=== PATIENT | male | born 1955 | race Caucasian/White ===

== ENCOUNTER 2017-11-19 14:03 | Emergency (ER) | payer BC ==
--- NOTE | 2017-11-19 14:21 | Emergency Department Record ---
History of Present Illness - General Chief Complaint: Abdominal Pain Stated Complaint: PAIN LEFT SIDE Time Seen by Provider: 11/19/17 14:09 Source: Patient Mode of Arrival: Ambulatory Limitations: No limitations - History of Present Illness Initial Comments: 62 yo male presents with left side pain. The pain started over the last day. No fevers, chills, dysuria, hematuria, diarrhea. The area lateral on the lower left is tender. Mild nausea. No mass or hernia. No history of the same. Certain movements make it worse or pushing on the area. No rash. No history of the same. No history of renal stones, no diverticulosis, no history of GI bleed. MD Complaint: Abdominal pain (Left) -: Days(s) (1) Location: LLQ Radiation: LLQ Migration to: LLQ Severity: Moderate Quality: Aching, Sharp Consistency: Intermittent Improves With: Rest Worsens With: Movement Context: Other Associated Symptoms: Denies other symptoms - Related Data Previous Rx's Medication Instructions Recorded Ciprofloxacin HCl [Cipro] 500 mg PO NOW #14 tablet 11/19/17 Metronidazole [Flagyl] 500 mg PO QID #28 tablet 11/19/17 Allergies Allergy/AdvReac Type Severity Reaction Status Date / Time No Known Allergies Allergy PT UNSURE Verified 11/19/17 14:13 OF REACTION Review of Systems Constitutional: Denies: Chills, Fever, Weakness Eyes: Denies: Eye discharge ENT: Denies: Congestion, Throat pain Respiratory: Denies: Cough Cardiovascular: Denies: Chest pain, Palpitations, Syncope Endocrine: Denies: Fatigue Gastrointestinal: Reports: As per HPI, Abdominal pain, Nausea. Denies: Diarrhea , Vomiting Genitourinary: Denies: Dysuria, Frequency, Hematuria Musculoskeletal: Denies: Arthralgia, Back pain, Myalgia, Neck pain Skin: Denies: Bruising, Change in color, Rash Neurological: Denies: Numbness, Vertigo, Weakness Psychiatric: Denies: Anxiety Hematological/Lymphatic: Denies: Blood Clots, Easy bleeding, Easy bruising Physical Exam - General General Appearance: Alert, Oriented x3, Cooperative, No acute distress Limitations: No limitations - Head Head exam: Atraumatic, Normal inspection - Eye Eye exam: Normal appearance. negative: Conjunctival injection, Scleral icterus - ENT ENT exam: Normal exam Ear exam: Normal external inspection Nasal Exam: Normal inspection Mouth exam: Normal external inspection - Neck Neck exam: Normal inspection - Respiratory Respiratory exam: Normal lung sounds bilaterally. negative: Respiratory distress - Cardiovascular Cardiovascular Exam: Regular rate, Normal rhythm, Normal heart sounds - GI/Abdominal GI/Abdominal exam: Soft, Tenderness (tender left lateral abdomen over a small area approximately the size of my fist, no mass or hernia). negative: Distended , Guarding, Rebound, Rigid - Rectal Rectal exam: Deferred - exam: Deferred - Extremities Extremities exam: Normal inspection - Back Back exam: Reports: Normal inspection, CVA tenderness (L) (as noted above), Full ROM, Tenderness. Denies: Muscle spasm, Rash noted - Neurological Neurological exam: Alert, Oriented X3 - Psychiatric Psychiatric exam: Normal affect, Normal mood - Skin Skin exam: Dry, Intact, Normal color, Warm Course - Reevaluation(s) Reevaluation #1: The labs were reviewed No acute changes on the CBC or CMP The UA is negative 11/19/17 15:14 11/19/17 15:[address] is consistent with mild acute diverticulitis, no free air, no free fluid , no abscess He is afebrile, no elevated WBC count, eating and drinking. He is a good outpatient candidate. He will be referred to GI. We discussed the results of the tests and questions were answered at the time of discharge. The patient is doing well and is comfortable with DC. DC vitals were reviewed. We discussed at length reasons to immediately return to the ED as well as close follow up. The patient will call the PCP for close follow up of this ED visit to review this visit and the tests performed Medical Decision Making - Lab Data Result diagrams: 11/19/17 14:30 11/19/17 14:30 Disposition Disposition: Discharge Clinical Impression: Left flank pain, Diverticulitis Disposition: Home, Self-Care Condition: (1) Good Instructions: Diverticulitis (ED) Additional Instructions: Take the prescriptions provided today as directed. Call your family doctor. Call to schedule the next available appointment for a recheck. You have been referred to the GI Clinic. You will get a call first of the week for an appointment availability Return to ED if your symptoms worsen or if you have any new concerns. Review the final Emergency Record and test results with your doctor on follow up Start the antibiotics tonight Prescriptions: Ciprofloxacin HCl [Cipro] 500 mg PO NOW #14 tablet Metronidazole [Flagyl] 500 mg PO QID #28 tablet Forms: Patient Portal Access Time of Disposition: 16:30 Quality - Quality Measures Quality Measures: N/A - Blood Pressure Screening Does Patient Have Any of the Following: Active Dx of HTN Blood Pressure Classification: Normal BP Reading Systolic Measurement: 111 Diastolic Measurement: 74 Screening for High Blood Pressure: Patient Exclusion, Hx of HTN [G9744]
[2017-11-19 14:44] LABS: BASO % 0.3 % (0-6); EOS % 0.3 % (0-6); GRAN % 78.3 % (47-80); HEMOGLOBIN 15.5 gm/dl (14.0-18.0); LYMPH % 13.3 % (16-45); MEAN CELL VOLUME 85.7 fl (81-97); MEAN CORPUSCULAR HEMOGLOBIN 29.5 pg (27-33); MEAN CORPUSCULAR HGB CONC 34.4 g/dl (32-36); MONO % 7.8 % (0-9); PLATELET COUNT 291 K/uL (130-400); RED BLOOD COUNT 5.25 M/uL (4.40-5.70); RED CELL DISTRIBUTION WIDTH 13.1 % (11.5-14.5); URINE APPEARANCE CLEAR; URINE BILIRUBIN NEGATIVE (NEGATIVE); URINE BLOOD NEGATIVE (NEGATIVE); URINE COLOR YELLOW; URINE GLUCOSE (UA) NEGATIVE (NEGATIVE); URINE KETONE NEGATIVE (NEGATIVE); URINE LEUKOCYTE ESTERASE NEGATIVE (NEGATIVE); URINE NITRITE NEGATIVE (NEGATIVE); URINE PROTEIN NEGATIVE (NEGATIVE); URINE UROBILINOGEN 0.2 E.U./dL (0.20 - 1.00); WHITE BLOOD COUNT W/O DIFF 11.8 K/uL (4.2-12.2)
[2017-11-19 14:57] LABS: BLOOD UREA NITROGEN 18 mg/dL (8-23); CREATININE 0.8 mg/dL (0.7-1.2); EST GLOMERULAR FILTRATION RATE > 60 mL/min
[2017-11-19 14:58] LABS: TOTAL PROTEIN 7.5 g/dL (6.6-8.7)
[2017-11-19 15:00] LABS: GLUCOSE,RANDOM 99 mg/dL (74-109)
[2017-11-19 15:03] LABS: ALB/GLOB RATIO 1.5 (1.1-1.8); ALBUMIN 4.5 g/dL (4.0-5.0); ALKALINE PHOSPHATASE 99 U/L (40-129); ALT/SGPT 28 U/L (<41); AST/SGOT 28 U/L (10.0-50.0)
--- NOTE | 2017-11-22 05:28 | CT SCAN REPORT ---
DATE: 11/19/2017. EXAM: CT SCAN OF THE ABDOMEN AND PELVIS. HISTORY: THE PATIENT HAS LEFT MIDABDOMINAL PAIN. TECHNIQUE: Serial axial CT scan of the abdomen and pelvis was performed at 2.5 mm intervals from the dome of the diaphragm down to the pubic symphysis without the use of intravenous or oral contrast. COMPARISON: No comparison CTs are available. FINDINGS: The lung windows and lung bases demonstrate no CT evidence of a focal infiltrative pleural effusion. An elevated left hemidiaphragm is noted. Clinical correlation for diaphragmatic paralysis is recommended. The visualized heart size and contour is within normal limits. The liver demonstrates mild, diffuse fatty infiltration. Contour and size of the liver is within normal limits. The spleen, pancreas, and bilateral adrenal glands are unremarkable. Multiple gallstones are identified within the gallbladder without CT evidence of cholecystitis. The bilateral kidneys demonstrate no CT evidence of hydronephrosis or hydroureter. A large exophytic cyst measuring 6.5 cm in diameter is noted at the inferior pole of the right kidney. There is a smaller cyst measuring 2.0 cm at the superior pole of the right kidney. These appear to be Bosniak Type I type cysts. There is a nonobstructive, 4.0 mm calculus within the anterior mid pole of the left kidney. The contour and caliber of the noncontrasted abdominal aorta is within normal limits. There is no CT evidence of retroperitoneal, pelvic, or inguinal lymphadenopathy. The bowel gas pattern is nonobstructive. There is focal fat stranding surrounding the mid left descending colon with multiple adjacent diverticula. These findings are compatible with acute, mild diverticulitis. There is no CT evidence of free intraperitoneal air or free intraperitoneal fluid. No peridiverticular abscess is noted. Anterior abdominal wall is unremarkable. The urinary bladder is unremarkable. Moderate prostatic calcifications are identified. The bone windows demonstrate no CT evidence of an acute process involving the osseous structures of the abdomen and pelvis. IMPRESSION: FINDINGS COMPATIBLE WITH ACUTE, MILD DIVERTICULITIS. NO PERIDIVERTICULAR ABSCESS, FREE INTRAPERITONEAL AIR, OR FREE INTRAPERITONEAL FLUID IS NOTED. JOB NUMBER: [id number] MTDD
== END 2017-11-19 16:12 | disposition home or self-care (01) ==
LOC: ER 14:03
DX: K57.92 Diverticulitis of intestine, part unspecified, without perforation or abscess without bleeding (principal); R10.32 Left lower quadrant pain; I10 Essential (primary) hypertension
CPT/HCPCS: 74176; 80053; 81003; 85025; 99283; 99284

== ENCOUNTER 2018-01-22 11:00 | Emergency (ER) | payer BC ==
--- NOTE | 2018-01-22 12:12 | Emergency Department Record ---
History of Present Illness - General Chief Complaint: Headache Migraine Stated Complaint: HEADACHE Time Seen by Provider: 01/22/18 11:37 Source: Patient Mode of Arrival: Ambulatory - History of Present Illness Initial Comments: headache on the right side on and off for 3 days and no trauma and not much relief with tylenol of motrin. last night dose of tylenol 1000mg . Patient said the headache goes away when sleeping. MD Complaint: Headache (nh) Onset/Timin -: Days(s) Onset Description: Gradual Location: Frontal Severity: Moderate Severity scale (1-10): 7 Quality: Aching Consistency: Constant, Intermittent Improves With: Nothing Worsens With: None Treatments Prior to Arrival: Acetaminophen, Ibuprofen - Symptoms of Stroke Onset of Symptoms Date: 01/18/18 Onset of Symptoms Time: 12:30 - Related Data Home Medications Medication Instructions Recorded Confirmed Last Taken Aspirin [Aspirin EC] 81 mg PO DAILY 01/22/18 01/22/18 1 Day Ago ~01/21/18 Cholecalciferol (Vitamin D3) 10,000 unit PO DAILY 01/22/18 01/22/18 1 Day Ago [Vitamin D3] ~01/21/18 Dwight-3 Fatty Acids/Fish Oil [Fish 1 each PO DAILY 01/22/18 01/22/18 1 Day Ago Oil 1,000 mg Capsule] ~01/21/18 Previous Rx's Medication Instructions Recorded Naproxen [Naprosyn] 500 mg PO BID #30 tablet 01/22/18 Allergies Allergy/AdvReac Type Severity Reaction Status Date / Time No Known Allergies Allergy PT UNSURE Verified 01/22/18 11:50 OF REACTION Travel Screening - Travel/Exposure Within Last 30 Days Have you traveled within the last 30 days?: No - Travel/Exposure Within Last Year Have you traveled outside the [place] in the last year?: No - Additonal Travel Details Have you been exposed to anyone with a communicable illness?: No - Travel Symptoms Symptom Screening: None Review of Systems Reviewed: No additional complaints except as noted below Constitutional: Reports: As per HPI. Denies: Chills, Fever, Malaise, Night sweats, Weakness, Weight change Eyes: Reports: As per HPI. Denies: Eye discharge, Eye pain, Photophobia, Vision change ENT: Reports: As per HPI. Denies: Congestion, Dental pain, Ear pain, Epistaxis , Hearing loss, Throat pain Respiratory: Reports: As per HPI. Denies: Cough, Dyspnea, Hemoptysis, Stridor, Wheezes Cardiovascular: Reports: As per HPI. Denies: Arrhythmia, Chest pain, Dyspnea on exertion, Edema, Murmurs, Orthopnea, Palpitations, Paroxysmal nocturnal dyspnea, Rheumatic Fever, Syncope Endocrine: Reports: As per HPI. Denies: Fatigue, Heat or cold intolerance, Polydipsia, Polyuria Gastrointestinal: Reports: As per HPI. Denies: Abdominal pain, Constipation, Diarrhea, Hematemesis, Hematochezia, Melena, Nausea, Vomiting Genitourinary: Reports: As per HPI. Denies: Dysuria, Frequency, Hematuria, Incontinence, Retention, Testicular pain, Testicular mass, Urgency Musculoskeletal: Reports: As per HPI. Denies: Arthralgia, Back pain, Gout, Joint swelling, Myalgia, Neck pain Skin: Reports: As per HPI. Denies: Bruising, Change in color, Change in hair/ nails, Lesions, Pruritus, Rash Neurological: Reports: As per HPI. Denies: Abnormal gait, Confusion, Headache, Numbness, Paresthesias, Seizure, Tingling, Tremors, Vertigo, Weakness Psychiatric: Reports: As per HPI. Denies: Anxiety, Auditory hallucinations, Depression, Homicidal thoughts, Suicidal thoughts, Visual hallucinations Hematological/Lymphatic: Reports: As per HPI. Denies: Anemia, Blood Clots, Easy bleeding, Easy bruising, Swollen glands Past Medical History - SOCIAL HISTORY Smoking Status: Former smoker Alcohol Use: Rare Drug Use: None - RESPIRATORY Hx Respiratory Disorders: No - CARDIOVASCULAR Hx Cardio Disorders: Yes Hx Hypertension: Yes - NEURO Hx Neuro Disorders: No - GI Hx GI Disorders: No - Hx Genitourinary Disorders: No - ENDOCRINE Hx Endocrine Disorders: Yes Hx Diabetes: Yes (borderline) - MUSCULOSKELETAL Hx Musculoskeletal Disorders: No - PSYCH Hx Psych Problems: No - HEMATOLOGY/ONCOLOGY Hx Hematology/Oncology Disorders: No Family Medical History Any Significant Family History?: Yes Hx Diabetes: Mother Hx Stroke: Father Physical Exam - General General Appearance: Alert, Oriented x3, Cooperative, No acute distress - Head Head exam: Normal inspection - Eye Eye exam: Normal appearance, PERRL Pupils: Normal accommodation - ENT ENT exam: Normal exam, Mucous membranes moist, Normal external ear exam, Normal orophraynx, TM's normal bilaterally Ear exam: Normal external inspection. negative: External canal tenderness Nasal Exam: Normal inspection. negative: Discharge, Sinus tenderness Mouth exam: Normal external inspection, Tongue normal Teeth exam: Normal inspection. negative: Dental caries Throat exam: Normal inspection. negative: Tonsillar erythema, Tonsillar exudate - Neck Neck exam: Normal inspection, Full ROM. negative: Tenderness - Respiratory Respiratory exam: Normal lung sounds bilaterally. negative: Respiratory distress - Cardiovascular Cardiovascular Exam: Regular rate, Normal rhythm, Normal heart sounds - GI/Abdominal GI/Abdominal exam: Soft, Normal bowel sounds. negative: Tenderness - Rectal Rectal exam: Deferred - exam: Deferred - Extremities Extremities exam: Normal inspection, Full ROM, Normal capillary refill. negative: Tenderness - Back Back exam: Reports: Normal inspection, Full ROM. Denies: Muscle spasm, Rash noted, Tenderness - Neurological Neurological exam: Alert, Normal gait, Oriented X3, Reflexes normal - Psychiatric Psychiatric exam: Normal affect, Normal mood - Skin Skin exam: Dry, Intact, Normal color, Warm Course Vital Signs 01/22/18 11:42 Temperature 98.2 F Pulse Rate 78 Respiratory 16 Rate Blood Pressure 120/38 Pulse Ox 97 - Reevaluation(s) Reevaluation #1: offerred pain meds and he initially refused meds 01/22/18 12:12 Medical Decision Making - Data Complexity MDM Data: Labs Ordered and/or Reviewed, X-Ray Ordered and/or Reviewed (CT head negative) - Lab Data Result diagrams: 01/22/18 12:20 01/22/18 12:20 Disposition Clinical Impression: Headache Qualifiers: Headache type: unspecified Headache chronicity pattern: acute headache Intractability: not intractable Qualified Code(s): R51 - Headache Disposition: Home, Self-Care Condition: (1) Good Instructions: Tension Headache (ED) Additional Instructions: follow up with family in 2-5 days Prescriptions: Naproxen [Naprosyn] 500 mg PO BID #30 tablet Forms: Patient Portal Access Time of Disposition: 13:41 Quality - Quality Measures Quality Measures: N/A - Blood Pressure Screening Does Patient Have Any of the Following: No Blood Pressure Classification: Pre-Hypertensive BP Reading Systolic Measurement: 120 Diastolic Measurement: 38 Screening for High Blood Pressure: < Pre-Hypertensive BP, F/U Documented > [ G8950] Pre-Hypertensive Follow-up Interventions: Referral to alternative/primary care provider.
[2018-01-22 12:24] LABS: BASO % 0.7 % (0-6); EOS % 1.2 % (0-6); GRAN % 58.8 % (47-80); HEMATOCRIT 45.8 % (42.0-52.0); HEMOGLOBIN 15.5 gm/dl (14.0-18.0); LYMPH % 30.5 % (16-45); MEAN CELL VOLUME 85.8 fl (81-97); MEAN CORPUSCULAR HGB CONC 33.8 g/dl (32-36); MEAN PLATELET VOLUME 9.8 fl (7.4-10.4); MONO % 8.8 % (0-9); PLATELET COUNT 301 K/uL (130-400); RED BLOOD COUNT 5.34 M/uL (4.40-5.70); RED CELL DISTRIBUTION WIDTH 13.5 % (11.5-14.5); WHITE BLOOD COUNT W/O DIFF 5.7 K/uL (4.2-12.2)
[2018-01-22 12:41] LABS: BLOOD UREA NITROGEN 16 mg/dL (8-23); CREATININE 0.8 mg/dL (0.7-1.2); EST GLOMERULAR FILTRATION RATE > 60 mL/min
[2018-01-22 12:44] LABS: GLUCOSE,RANDOM 102 mg/dL (74-109)
--- NOTE | 2018-01-23 14:37 | CT SCAN REPORT ---
EXAM: CT OF THE HEAD WITHOUT CONTRAST HISTORY: FRONTAL HEADACHES TIMES THREE DAYS. TECHNIQUE: Noncontrast images of the brain were obtained. FINDINGS: The brain volume is normal. There is no evidence of hemorrhage, mass effect, midline shift, or acute transcortical infarction. No extraaxial fluid collections are seen. The ventricles and basal cisterns are preserved. IMPRESSION: UNREMARKABLE CT SCAN OF THE BRAIN. JOB NUMBER: [id number] MTDD
== END 2018-01-22 14:17 | disposition home or self-care (01) ==
LOC: ER 11:00
DX: R51 Headache (principal); I10 Essential (primary) hypertension; Z87.891 Personal history of nicotine dependence
CPT/HCPCS: 70450; 80048; 85025; 85730; 99283; 99284

== ENCOUNTER 2018-05-05 07:36 | Emergency (ER) | payer BC ==
[2018-05-05] MEDS ORDERED: 0.9 % SODIUM CHLORIDE 1,000 ML BAG IV ONE (07:42)
--- NOTE | 2018-05-05 07:48 | Emergency Department Record ---
History of Present Illness - General Chief Complaint: Back Pain/Injury Stated Complaint: BACK PAIN Time Seen by Provider: 05/05/18 07:41 Source: Patient Mode of Arrival: Ambulatory Limitations: No limitations - History of Present Illness Initial Comments: 63 yo male presents with left flank and left side pain for about a week. He has nausea without vomiting. No fevers. He has a history of diverticulitis. He was started on antibiotics on Tuesday by his GI doctor. He is having a few small episodes of diarrhea each day. The pain is mild but not getting better. No rash. Dr Santiago is his GI specialist. He is on Cipro and Flagyl. MD Complaint: Back pain -: Days(s) Place: Home Radiation: Abdomen Severity: Moderate Quality: Aching Consistency: Constant Improves With: Other (rest) Worsens With: Eating Context: Other (Hx of diverticulitis) Associated Symptoms: Nausea/vomiting - Related Data Home Medications Medication Instructions Recorded Confirmed Last Taken Ciprofloxacin HCl [Cipro] 500 mg PO Q12HR 05/05/18 05/05/18 05/05/18 Losartan/Hydrochlorothiazide 1 each PO DAILY 05/05/18 05/05/18 05/05/18 [Losartan-Hctz 50-12.5 mg Tab] Metronidazole [Flagyl] 500 mg PO BID 05/05/18 05/05/18 05/05/18 Allergies Allergy/AdvReac Type Severity Reaction Status Date / Time No Known Allergies Allergy PT UNSURE Verified 05/05/18 08:11 OF REACTION Review of Systems Constitutional: Denies: Chills, Fever, Malaise, Weakness Eyes: Denies: Eye discharge, Eye pain, Photophobia, Vision change ENT: Denies: Congestion, Throat pain Respiratory: Denies: Cough, Dyspnea Cardiovascular: Denies: Chest pain, Palpitations, Syncope Endocrine: Denies: Fatigue Gastrointestinal: Reports: Abdominal pain, Diarrhea, Nausea Genitourinary: Denies: Dysuria, Frequency, Hematuria Musculoskeletal: Reports: Back pain. Denies: Arthralgia, Neck pain Skin: Denies: Bruising, Change in color, Rash Neurological: Denies: Headache Psychiatric: Denies: Anxiety Hematological/Lymphatic: Denies: Easy bleeding, Easy bruising Past Medical History - SOCIAL HISTORY Smoking Status: Former smoker Drug Use: None - RESPIRATORY Hx Respiratory Disorders: No - CARDIOVASCULAR Hx Cardio Disorders: Yes Hx Hypertension: Yes - NEURO Hx Neuro Disorders: No - GI Hx GI Disorders: No - Hx Genitourinary Disorders: No - ENDOCRINE Hx Endocrine Disorders: Yes Hx Diabetes: Yes (borderline) - MUSCULOSKELETAL Hx Musculoskeletal Disorders: No - PSYCH Hx Psych Problems: No - HEMATOLOGY/ONCOLOGY Hx Hematology/Oncology Disorders: No Family Medical History Hx Diabetes: Mother Hx Stroke: Father Physical Exam - General General Appearance: Alert, Oriented x3, Cooperative, No acute distress Limitations: No limitations - Head Head exam: Atraumatic, Normal inspection - Eye Eye exam: Normal appearance. negative: Conjunctival injection, Scleral icterus - ENT ENT exam: Normal exam Ear exam: Normal external inspection Nasal Exam: Normal inspection Mouth exam: Normal external inspection - Neck Neck exam: Normal inspection - Respiratory Respiratory exam: Normal lung sounds bilaterally. negative: Respiratory distress - Cardiovascular Cardiovascular Exam: Regular rate, Normal rhythm, Normal heart sounds - GI/Abdominal GI/Abdominal exam: Soft, Tenderness (mild left lateral abdominal tender, soft no rebound or guarding). negative: Distended, Guarding, Rebound, Rigid - Rectal Rectal exam: Deferred - exam: Deferred - Extremities Extremities exam: Normal inspection, Full ROM, Normal capillary refill. negative: Tenderness - Back Back exam: Reports: Normal inspection, Full ROM. Denies: Muscle spasm, Rash noted, Tenderness - Neurological Neurological exam: Alert, Normal gait, Oriented X3 - Psychiatric Psychiatric exam: Normal affect, Normal mood - Skin Skin exam: Dry, Intact, Normal color, Warm Course - Reevaluation(s) Reevaluation #1: 05/05/18 07:[address] scan from 11/19/17 demonstrated mild acute diverticulitis 05/05/18 08:23 The CBC,CMP, and Lipase were normal No acute infection on the UA 05/05/18 09:[address] scan was reviewed. Very minimal findings to suggest diverticulitis of the descending colon, otherwise negative 05/05/18 09:35 We discussed the results of the tests and questions were answered at the time of discharge. He was informed of the incidental findings of gall stones as well The patient is doing well and is comfortable with DC. DC vitals were reviewed. We discussed at length reasons to immediately return to the ED as well as close follow up. The patient will call the PCP for close follow up of this ED visit to review this visit and the tests performed Medical Decision Making - Lab Data Result diagrams: 05/05/18 07:50 05/05/18 07:50 Disposition Disposition: Discharge Clinical Impression: Diverticulitis, Gall stones Disposition: Home, Self-Care Condition: (1) Good Instructions: Diverticulitis (ED), Gallstones (ED) Additional Instructions: Call your doctor for the next available follow up appointment to recheck your symptoms Return to the ER for a recheck if worse,any fever, any vomiting or any new concerns or questions Take the prescriptions provided as directed until gone Review this ER visit and the tests performed with your family doctor Forms: Patient Portal Access Time of Disposition: 09:36 Quality - Quality Measures Quality Measures: N/A - Blood Pressure Screening Does Patient Have Any of the Following: Active Dx of HTN Blood Pressure Classification: Pre-Hypertensive BP Reading Systolic Measurement: 133 Diastolic Measurement: 86 Screening for High Blood Pressure: Patient Exclusion, Hx of HTN [G9744]
[2018-05-05 08:00] LABS: BASO % 0.4 % (0-6); EOS % 1.5 % (0-6); GRAN % 62.7 % (47-80); HEMOGLOBIN 16.3 gm/dl (14.0-18.0); LYMPH % 27.1 % (16-45); MEAN CELL VOLUME 85.8 fl (81-97); MEAN CORPUSCULAR HEMOGLOBIN 29.7 pg (27-33); MEAN CORPUSCULAR HGB CONC 34.7 g/dl (32-36); MONO % 8.3 % (0-9); PLATELET COUNT 297 K/uL (130-400); RED BLOOD COUNT 5.48 M/uL (4.40-5.70); RED CELL DISTRIBUTION WIDTH 13.3 % (11.5-14.5); WHITE BLOOD COUNT W/O DIFF 6.7 K/uL (4.2-12.2)
[2018-05-05 08:04] LABS: URINE APPEARANCE CLEAR; URINE BILIRUBIN NEGATIVE (NEGATIVE); URINE BLOOD NEGATIVE (NEGATIVE); URINE COLOR YELLOW; URINE GLUCOSE (UA) NEGATIVE (NEGATIVE); URINE KETONE NEGATIVE (NEGATIVE); URINE LEUKOCYTE ESTERASE TRACE (NEGATIVE); URINE NITRITE NEGATIVE (NEGATIVE); URINE UROBILINOGEN 0.2 E.U./dL (0.20 - 1.00)
[2018-05-05 08:12] LABS: BLOOD UREA NITROGEN 13 mg/dL (8-23); CREATININE 0.8 mg/dL (0.7-1.2); EST GLOMERULAR FILTRATION RATE > 60 mL/min
[2018-05-05 08:13] LABS: LIPASE 26 U/L (13-60); TOTAL PROTEIN 7.2 g/dL (6.6-8.7)
[2018-05-05 08:15] LABS: GLUCOSE,RANDOM 101 mg/dL (74-109)
[2018-05-05 08:18] LABS: ALB/GLOB RATIO 1.7 (1.1-1.8); ALBUMIN 4.5 g/dL (4.0-5.0); ALKALINE PHOSPHATASE 97 U/L (40-129); ALT/SGPT 33 U/L (<41); AST/SGOT 29 U/L (10.0-50.0)
[2018-05-05 08:18] LABS: URINE EPITHELIAL CELLS 0 - 2 (FEW); URINE RBC 0 - 2 (NONE SEEN); URINE WBC 0 - 2 (0-2/hpf)
[2018-05-05 08:19] LABS: URINE AMORPHOUS SEDIMENT 1+; URINE MUCUS LIGHT
--- NOTE | 2018-05-08 09:45 | CT SCAN REPORT ---
EXAM: POST CONTRAST CT OF THE ABDOMEN AND PELVIS HISTORY: LEFT FLANK PAIN, DIARRHEA. TECHNIQUE: CT of the abdomen and pelvis was performed with 95 ml Omnipaque 300 intravenous contrast as well as oral contrast. Comparison: Noncontrast CT of the abdomen and pelvis 11/19/17. FINDINGS: Linear and ground glass opacities in the dependent lower lobes bilaterally, likely atelectasis. The liver appears unremarkable. Cholelithiasis is present. Unremarkable appearance of the adrenal glands, pancreas, and spleen. Multiple right renal cysts, the largest measuring 6.1 cm near the lower pole. Symmetric renal perfusion. No hydronephrosis. There is descending and sigmoid colon diverticulosis with minimal pericolic stranding at the level of the mid descending colon. Normal appendix. The stomach and small bowel are nondilated. Oral contrast material reaches the mid to distal small bowel loops. No free air. No free fluid. Tiny fat containing umbilical hernia. Prostatic calcifications. Unremarkable appearance of the urinary bladder. Mild calcification of the aortoiliac arterial access without evidence of aneurysm or dissection. No acute osseous findings. Degenerative changes of the thoracic and lumbar spine. IMPRESSION: 1. DESCENDING AND SIGMOID COLON DIVERTICULOSIS. MINIMAL STRANDING ADJACENT TO THE MID DESCENDING COLON, EQUIVOCAL FOR MILD UNCOMPLICATED ACUTE DIVERTICULITIS. 2. OTHERWISE NO ACUTE FINDINGS IN THE ABDOMEN OR PELVIS. 3. CHOLELITHIASIS. JOB NUMBER: [id number] [facility] [place]
== END 2018-05-05 09:46 | disposition home or self-care (01) ==
LOC: ER 07:36
DX: K57.92 Diverticulitis of intestine, part unspecified, without perforation or abscess without bleeding (principal); K80.80 Other cholelithiasis without obstruction; R11.0 Nausea; R19.7 Diarrhea, unspecified; I10 Essential (primary) hypertension; Z87.891 Personal history of nicotine dependence
CPT/HCPCS: 99284 ×2; 96360; 96361; 83690; 85025; 80053; 81001; 74177; Q9967; J7030

== ENCOUNTER 2018-08-01 11:08 | Emergency (ER) | payer BC ==
[2018-08-01] MEDS ORDERED: ASPIRIN 81 MG CHEWABLE TABLET PO ONE (11:21)
--- NOTE | 2018-08-01 11:22 | Emergency Department Record ---
History of Present Illness - General Chief Complaint: Hypertension Stated Complaint: HIGH BLOOD PRESSURE Time Seen by Provider: 08/01/18 11:14 Source: Patient Mode of Arrival: Ambulatory Limitations: No limitations - History of Present Illness Initial Comments: 63 yo male presents with feeling of flushed with chest pressure that has come and gone since yesterday. The onset was yesterday afternoon at work. It started feeling a pressure in the head. He developed a tight feeling in the chest at his desk in the late afternoon. He took aspirin twice yesterday. He went home and the symptoms resolved. Very brief light pressure occurred very early this morning then resolved with return. It is currently gone. He denies any known CAD. He had a stress test 2 years ago. He had a heart cath in the past that did not require intervention. No history of intervention. No shortness of breath. No symptoms with exertion. No sweating. No nausea. No pain with inspiration. No edema. He called his PCP and was directed to the ED. He was worried about his BP as well. During the symptoms his BP was about 160/90. He is not currently having symptoms. He called his PCP this morning and was directed to the ED. Complaint: Other -: Days(s) (1) Timing: Sudden onset Description: Other History of Same: No History of Trauma: No Severity: Mild Improves With: Nothing Worsens With: Nothing Associated Symptoms: Denies other symptoms - Shanda Coma Scale Eye Response: (4) Open spontaneously Motor Response: (6) Obeys commands Verbal Response: (5) Oriented [place] Total: 15 - Related Data Allergies Allergy/AdvReac Type Severity Reaction Status Date / Time No Known Allergies Allergy PT UNSURE Verified 08/01/18 11:17 OF REACTION Review of Systems Constitutional: Denies: Chills, Fever, Malaise, Weakness Eyes: Denies: Eye discharge ENT: Denies: Congestion, Throat pain Respiratory: Denies: Cough, Dyspnea, Hemoptysis, Stridor, Wheezes Cardiovascular: Reports: Chest pain. Denies: Dyspnea on exertion, Edema, Palpitations, Syncope Endocrine: Denies: Fatigue, Polydipsia, Polyuria Gastrointestinal: Denies: Abdominal pain, Diarrhea, Nausea, Vomiting Genitourinary: Denies: Dysuria, Frequency, Hematuria Musculoskeletal: Denies: Arthralgia, Back pain, Myalgia Skin: Denies: Bruising, Change in color, Rash Neurological: Denies: Headache Psychiatric: Denies: Anxiety Hematological/Lymphatic: Denies: Easy bleeding, Easy bruising Past Medical History - SOCIAL HISTORY Smoking Status: Former smoker Drug Use: None - RESPIRATORY Hx Respiratory Disorders: No - CARDIOVASCULAR Hx Cardio Disorders: Yes Hx Hypertension: Yes - NEURO Hx Neuro Disorders: No - GI Hx GI Disorders: No - Hx Genitourinary Disorders: No - ENDOCRINE Hx Endocrine Disorders: Yes Hx Diabetes: Yes (borderline) - MUSCULOSKELETAL Hx Musculoskeletal Disorders: No - PSYCH Hx Psych Problems: No - HEMATOLOGY/ONCOLOGY Hx Hematology/Oncology Disorders: No Family Medical History Hx Diabetes: Mother Hx Stroke: Father Physical Exam - General General Appearance: Alert, Oriented x3, Cooperative, No acute distress Limitations: No limitations - Head Head exam: Atraumatic, Normal inspection - Eye Eye exam: Normal appearance, PERRL. negative: Conjunctival injection, Scleral icterus - ENT ENT exam: Normal exam Ear exam: Normal external inspection Nasal Exam: Normal inspection Mouth exam: Normal external inspection - Neck Neck exam: Normal inspection - Respiratory Respiratory exam: Normal lung sounds bilaterally. negative: Chest wall tenderness, Decreased breath sounds, Respiratory distress, Rhonchi, Stridor, Wheezes - Cardiovascular Cardiovascular Exam: Regular rate, Normal rhythm, Normal heart sounds - GI/Abdominal GI/Abdominal exam: Soft. negative: Tenderness - Rectal Rectal exam: Deferred - exam: Deferred - Extremities Extremities exam: Normal inspection. negative: Pedal edema, Tenderness - Back Back exam: Denies: CVA tenderness (R), CVA tenderness (L) - Neurological Neurological exam: Alert, Oriented X3 - Psychiatric Psychiatric exam: Normal affect, Normal mood - Skin Skin exam: Dry, Intact, Normal color, Warm Course - Reevaluation(s) Reevaluation #1: 08/01/18 11:43 EKG #1: 11:21 Rate: 78 Rhythm: sinus [place]: normal Intervals: normal ST segments: normal Prior: none Aspirin given in the ED 08/01/18 12:08 The labs were reviewed No acute changes of the CBC,CMP, or Troponin 08/01/18 12:15 The results were discussed with the patient. I recommend admit for observation given he is moderate risk even with normal testing. His has dementia and h e states admission is not possible due to her safety. We discussed his testing is normal but I recommend follow up with cardiology next available appointment. With shared decision making he understands some risk in leaving. He accepts this risk and is reliable to return immediately if the symptoms return. Troponin is negative with being symptom free over three hours. 08/01/18 12:41 I offered to call the last truss assembler he saw (Dr Sales). The patient states he does not consider any one truss assembler or group as someone he currently follows with and prefers to be seen in [place] if possible. An appointment was made fro 2:30 August 02. The patient was informed he can be seen tomorrow and follow with Dr Beyer terminal superintendent or call [facility] to be seen in [place] or [place] as well. 08/01/18 13:13 Medical Decision Making - Lab Data Result diagrams: 08/01/18 11:20 08/01/18 11:20 Disposition Disposition: Discharge Clinical Impression: Chest pain Disposition: Home, Self-Care Condition: (1) Good Instructions: Chest Pain (ED) Additional Instructions: Call your doctor for the next available follow up appointment Review this ER visit and the tests performed with your family doctor Return to the ER for a recheck if worse, any new concerns or questions Take a full aspirin daily until the truss assembler instructs you otherwise. Referrals: Santos Beyer M.D. [MEDICAL DOCTOR] - [facility] [Provider Group] Forms: Patient Portal Access Time of Disposition: 12:43 Quality - Quality Measures Quality Measures: N/A - Blood Pressure Screening Does Patient Have Any of the Following: Active Dx of HTN Blood Pressure Classification: Hypertensive Reading Systolic Measurement: 143 Diastolic Measurement: 90 Screening for High Blood Pressure: Patient Exclusion, Hx of HTN [G9744]
[2018-08-01 11:34] LABS: ABSOLUTE NEUTROPHIL COUNT 3.36; BASO % 0.5 % (0-6); EOS % 1.1 % (0-6); GRAN % 59.9 % (47-80); HEMOGLOBIN 16.2 gm/dl (14.0-18.0); LYMPH % 29.9 % (16-45); MEAN CORPUSCULAR HEMOGLOBIN 29.3 pg (27-33); MEAN CORPUSCULAR HGB CONC 33.8 g/dl (32-36); MEAN PLATELET VOLUME 9.8 fl (7.4-10.4); MONO % 8.6 % (0-9); PLATELET COUNT 282 K/uL (130-400); RED BLOOD COUNT 5.52 M/uL (4.40-5.70); RED CELL DISTRIBUTION WIDTH 13.5 % (11.5-14.5); WHITE BLOOD COUNT W/O DIFF 5.6 K/uL (4.2-12.2)
[2018-08-01 11:46] LABS: BLOOD UREA NITROGEN 19 mg/dL (8-23); CREATININE 0.8 mg/dL (0.7-1.2); EST GLOMERULAR FILTRATION RATE > 60 mL/min
[2018-08-01 11:47] LABS: TOTAL PROTEIN 7.3 g/dL (6.6-8.7)
[2018-08-01 11:49] LABS: GLUCOSE,RANDOM 104 mg/dL (74-109)
[2018-08-01 11:51] LABS: ALB/GLOB RATIO 1.7 (1.1-1.8); ALBUMIN 4.6 g/dL (4.0-5.0); ALT/SGPT 26 U/L (<41); AST/SGOT 26 U/L (10.0-50.0)
[2018-08-01 11:52] LABS: ALKALINE PHOSPHATASE 107 U/L (40-129)
== END 2018-08-01 12:55 | disposition home or self-care (01) ==
LOC: ER 11:08
DX: R07.89 Other chest pain (principal); R73.03 Prediabetes; I25.10 Atherosclerotic heart disease of native coronary artery without angina pectoris; I10 Essential (primary) hypertension; Z87.891 Personal history of nicotine dependence
CPT/HCPCS: 80053; 84484; 85025; 93005; 93010; 99284

== ENCOUNTER 2018-11-11 14:29 | Emergency (ER) | payer BC ==
--- NOTE | 2018-11-11 15:05 | Emergency Department Record ---
History of Present Illness - General Chief complaint: Male Urogenital Problem Stated complaint: PAIN IN GENITAL AREA Time Seen by Provider: 11/11/18 14:49 Source: Patient Mode of Arrival: Ambulatory Limitations: No limitations - History of Present Illness Initial comments: 63 yo male presents with pain in his penis for several months. He thinks it started with a rash along the glands. He has been seen by a ready care and a urology PA. He has treated with steroid and antifungal creams for about 2 months with continued pain. He has pain in the pelvis to the penis. No testicle pain or swelling. No current rash. He has pain and curve with erections. No discharge or bleeding. MD Complaint: Other Onset/Timin -: Month(s) Location: Penis Radiation: None Severity: Mild Severity scale (1-10): 5 Quality: Burning Consistency: Constant Improves with: None Worsens with: None Reports: Denies other symptoms - Related Data Home Medications Medication Instructions Recorded Confirmed Last Taken Nystatin/Triamcin 1 g TOP ASDIR 11/11/18 11/11/18 Unknown [Nystatin-Triamcinolone Cream] Allergies Allergy/AdvReac Type Severity Reaction Status Date / Time No Known Allergies Allergy PT UNSURE Verified 08/01/18 11:17 OF REACTION Travel Screening - Travel/Exposure Within Last 30 Days Have you traveled within the last 30 days?: No Review of Systems Constitutional: Denies: Chills, Fever, Malaise, Weakness Eyes: Denies: Eye discharge ENT: Denies: Congestion, Throat pain Respiratory: Denies: Cough, Dyspnea Cardiovascular: Denies: Chest pain, Palpitations, Syncope Endocrine: Denies: Fatigue, Polydipsia, Polyuria Gastrointestinal: Reports: Abdominal pain. Denies: Diarrhea, Nausea, Vomiting Genitourinary: Reports: Other (penile pain). Denies: Discharge, Dysuria, Frequency, Hematuria, Retention, Testicular pain, Testicular mass, Urgency Musculoskeletal: Denies: Arthralgia, Back pain, Myalgia Skin: Denies: Bruising, Change in color, Rash Neurological: Denies: Headache Psychiatric: Denies: Anxiety Hematological/Lymphatic: Denies: Easy bleeding, Easy bruising Past Medical History - SOCIAL HISTORY Smoking Status: Former smoker - RESPIRATORY Hx Respiratory Disorders: No - CARDIOVASCULAR Hx Cardio Disorders: Yes Hx Hypertension: Yes - NEURO Hx Neuro Disorders: No - GI Hx GI Disorders: No Hx Diverticulitis: Yes - Hx Genitourinary Disorders: No - ENDOCRINE Hx Endocrine Disorders: Yes Hx Diabetes: Yes (borderline) - MUSCULOSKELETAL Hx Musculoskeletal Disorders: No - PSYCH Hx Psych Problems: No - HEMATOLOGY/ONCOLOGY Hx Hematology/Oncology Disorders: No Family Medical History Any Significant Family History?: Yes Hx Diabetes: Mother Hx Stroke: Father Physical Exam - General General Appearance: Alert, Oriented x3, Cooperative, No acute distress Limitations: No limitations - Head Head exam: Atraumatic - Eye Eye exam: Normal appearance - ENT ENT exam: Normal exam Ear exam: Normal external inspection Nasal Exam: Normal inspection Mouth exam: Normal external inspection - Neck Neck exam: Normal inspection - Respiratory Respiratory exam: Normal lung sounds bilaterally - Cardiovascular Cardiovascular Exam: Regular rate, Normal rhythm, Normal heart sounds - GI/Abdominal GI/Abdominal exam: Soft. negative: Tenderness - Rectal Rectal exam: Deferred - exam: Circumcision, Normal inspection, Other (Normal external examination, no skin changes, no rash). negative: Scrotal swelling, Testicular tenderness, Urethral discharge - Extremities Extremities exam: Normal inspection - Back Back exam: Denies: CVA tenderness (R), CVA tenderness (L) - Neurological Neurological exam: Alert, Oriented X3 - Psychiatric Psychiatric exam: Normal affect, Normal mood - Skin Skin exam: Dry, Intact, Normal color, Warm Course Vital Signs 11/11/18 14:39 Temperature 98.1 F Pulse Rate 99 H Respiratory 20 Rate Blood Pressure 154/89 Pulse Ox 96 - Reevaluation(s) Reevaluation #1: 11/11/18 15:06 CT ordered and UA given the pain is somewhat disproportionate to the physical findings. No testicular or scrotal tenderness. 11/11/18 15:48 [address]A is negative The CT is negative for acute process I recommend to the patient continued follow up with his urologist as scheduled We did discuss reasons to return sooner if needed 11/11/18 16:08 Disposition Disposition: Discharge Clinical Impression: Painful penis Disposition: Home, Self-Care Condition: (1) Good Instructions: [place] (ED) Additional Instructions: Review this ER visit and the tests performed with your family doctor and urologist Call your doctor for the next available follow up appointment Discuss with your doctor a possible ultrasound of the penis to further try to find out what is causing the pain Referrals: SOCO,LANDY [MEDICAL DOCTOR] - Forms: Patient Portal Access Time of Disposition: 16:09 Quality - Quality Measures Quality Measures: N/A - Blood Pressure Screening Does Patient Have Any of the Following: No Blood Pressure Classification: Pre-Hypertensive BP Reading Systolic Measurement: 154 Diastolic Measurement: 89 Screening for High Blood Pressure: < Pre-Hypertensive BP, F/U Documented > [G8950] Pre-Hypertensive Follow-up Interventions: Referral to alternative/primary care provider.
[2018-11-11 15:30] LABS: URINE APPEARANCE CLEAR; URINE BILIRUBIN NEGATIVE (NEGATIVE); URINE BLOOD NEGATIVE (NEGATIVE); URINE COLOR YELLOW; URINE GLUCOSE (UA) NEGATIVE (NEGATIVE); URINE KETONE NEGATIVE (NEGATIVE); URINE LEUKOCYTE ESTERASE NEGATIVE (NEGATIVE); URINE NITRITE NEGATIVE (NEGATIVE); URINE PROTEIN TRACE (NEGATIVE); URINE UROBILINOGEN 0.2 E.U./dL (0.20 - 1.00)
--- NOTE | 2018-11-12 20:28 | CT SCAN REPORT ---
EXAM: CT SCAN ABDOMEN/PELVIS WO CONTRAST HISTORY: PAIN IN THE LEFT FLANK AND PENIS. TECHNIQUE: CT of the abdomen and pelvis is performed without intravenous or oral contrast. COMPARISON: CT abdomen and pelvis 05/05/2018. FINDINGS: The lung bases are unremarkable. There is diffuse fatty infiltration of the liver. There is no hepatic mass. The spleen is unremarkable. No pancreatic mass or inflammatory change. The bile ducts are not dilated. There are calcified gallstones within the gallbladder. Gall bladder otherwise unremarkable. There is no adrenal lesion. There are several right renal cysts, similar to the previous study. There is a vascular calcification in the left kidney. There are no renal or ureteral calculi and there is no hydronephrosis. There is no aortic aneurysm. No periaortic mass or adenopathy. There are no dilated bowel loops. The appendix is unremarkable. There is diverticulosis without CT evidence for diverticulitis. There is no pelvic mass, abscess, or adenopathy. There is no free air or free fluid identified. IMPRESSION: 1. NO ACUTE ABDOMINAL OR PELVIC PROCESS IDENTIFIED. 2. DIVERTICULOSIS WITHOUT CT EVIDENCE FOR DIVERTICULITIS. THE APPENDIX IS UNREMARKABLE. 3. CHOLELITHIASIS. 4. DIFFUSE FATTY INFILTRATION OF THE LIVER. 5. THERE ARE RIGHT RENAL CYSTS. JOB NUMBER: [id number] [facility]
== END 2018-11-11 16:33 | disposition home or self-care (01) ==
LOC: ER 14:29
DX: N48.89 Other specified disorders of penis (principal); I10 Essential (primary) hypertension; Z87.891 Personal history of nicotine dependence
CPT/HCPCS: 74176; 81003; 99283; 99284